=== PATIENT | male | born 1960 | race Caucasian/White ===

== ENCOUNTER 2017-01-15 17:54 | Emergency (ER) | payer MEDICAID ==
[~2017-01-15] VITALS: Ht 157.5 cm; Wt 78.0 kg
[2017-01-15 18:04] VITALS: BP 136/94
== END 2017-01-15 20:27 | disposition home or self-care (01) ==
LOC: ED 17:54
DX: K59.00 Constipation, unspecified (principal)

== ENCOUNTER 2020-01-30 08:55 | Emergency (ER) | payer MEDICAID ==
[~2020-01-30] VITALS: Ht 157.5 cm; Wt 67.1 kg
[2020-01-30 08:59] VITALS: Ht 157.5 cm; Wt 67.1 kg
[2020-01-30 10:11] VITALS: BP 126/72
== END 2020-01-30 10:11 | disposition home or self-care (01) ==
LOC: ED 08:55
DX: F41.1 Generalized anxiety disorder (principal); K21.9 Gastro-esophageal reflux disease without esophagitis; E78.00 Pure hypercholesterolemia, unspecified; Z88.0 Allergy status to penicillin